=== PATIENT | female | born 1960 | race Caucasian/White ===

== ENCOUNTER 2017-05-29 05:32 | Inpatient (IN) | payer MEDICAID ==
[~2017-05-29] VITALS: Ht 165.1 cm; Wt 97.5 kg
[~2017-05-29 05:32] MED LIST: ENAL10TA PO; GABA-290 PO; NPH,100V SQ; OMEP20TA15 PO; PRED1TAB PO
[2017-05-29 06:49] LABS: BASOPHILS % 0.6 % (0.0-2.0); EOSINOPHILS % 1.1 % (0.0-5.0); HEMOGLOBIN. 11.3 g/dL (12.0-16.0); LYMPHOCYTES % 20.8 % (20.0-50.0); MEAN CORPUSCULAR HEMOGLOBIN 28.8 pg (28.0-32.0); MEAN CORPUSCULAR VOLUME 86.8 fL (81.0-99.0); MEAN PLATELET VOLUME 7.9 fl (7.4-10.4); NEUTROPHILS % 72.5 % (40.0-76.0); PLATELET 365 x1000/uL (130-400); RED BLOOD CELL COUNT 3.92 mill/uL (4.2-5.4); RED CELL DISTRIBUTION WIDTH 14.2 % (11.6-14.6)
[2017-05-29 06:53] LABS: CHLORIDE 105 mEq/L (98-107)
[2017-05-29 06:55] LABS: PROTHROMBIN TIME 10.7 sec (9.4-11.6)
[2017-05-29] MEDS ORDERED: FUROSEMIDE 40MG/4ML VIAL IVP ONE (07:30)
[2017-05-29] MEDS ORDERED: ENALAPRIL 2.5MG/2ML VIAL 2ML IV ONE (07:30)
[2017-05-29] MEDS ORDERED: SODIUM POLYSTYRENE SULFONATE 15 G/60 ML BOT PO SCH (09:00)
[2017-05-29] MEDS ORDERED: MORPHINE SULFATE 2 MG/ML CPJ (NOT FOR IM USE) IV ONE (09:00)
[2017-05-29 09:20] VITALS: BP 150/85
[2017-05-29] MEDS ORDERED: TRAMADOL 50MG TABLET PO PRN (09:45)
[2017-05-29] MEDS ORDERED: ENOXAPARIN 40MG/0.4ML SYR SUBCUT SCH (09:45)
[2017-05-29] MEDS ORDERED: DOCUSATE SODIUM 100MG CAPSULE PO PRN (09:45)
[2017-05-29] MEDS ORDERED: MAGNESIUM/ALUMINUM HYDROXIDE/SIMETHICONE 30ML UDC PO PRN (09:45)
[2017-05-29] MEDS ORDERED: ACETAMINOPHEN 325MG TABLET PO PRN (09:45)
[2017-05-29] MEDS ORDERED: DEXTROSE 50% WATER 50ML SYRINGE IV PRN (09:45)
[2017-05-29] MEDS ORDERED: IPRATROPIUM/ALBUTEROL 0.5-3(2.5)MG/3ML NEB INH PRN (09:45)
[2017-05-29] MEDS ORDERED: CLONIDINE 0.1MG TABLET PO PRN (09:45)
[2017-05-29] MEDS: DIPHENHYDRAMINE 50MG/ML VIAL IV PRN ×3 (12:04→23:43)
[2017-05-29] MEDS: BLOOD SUGAR DIAGNOSTIC STRIP TEST SCH ×3 (12:13→20:59)
[2017-05-29] MEDS: HYDROCODONE/ACETAMINOPHEN 10/325MG TABLET PO PRN (12:17)
[2017-05-29] MEDS: INSULIN LISPRO 100 UNITS/ML SUBCUT SCH ×3 (12:19→21:15)
[2017-05-29 12:27] VITALS: BP 118/61
[2017-05-29] MEDS ORDERED: MEDICATION NOT ON FORMULARY EA (Gabapentin 800 MG) PO SCH (12:30)
[2017-05-29] MEDS: CARVEDILOL 3.125 MG TABLET PO SCH ×2 (13:50→20:22)
[2017-05-29] MEDS: GABAPENTIN 400MG CAPSULE PO SCH ×2 (13:51→20:45)
[2017-05-29] MEDS: LISINOPRIL 10MG TABLET PO SCH ×2 (13:51→20:23)
[2017-05-29] MEDS: OMEPRAZOLE 20MG CAPSULE EXTENDED RELEASE PO SCH ×2 (13:51→20:45)
[2017-05-29] MEDS: PREDNISONE 1MG TABLET PO SCH (13:53)
[2017-05-29] MEDS: SODIUM CHLORIDE 0.9% INJ 3ML FLUSH IVF SCH ×2 (13:54→21:13)
[2017-05-29 16:24] VITALS: BP 125/72
[2017-05-29] MEDS: FUROSEMIDE 40MG/4ML VIAL IVP SCH (16:59)
[2017-05-29] MEDS ORDERED: MEDICATION NOT ON FORMULARY EA (Omeprazole Magnesium (Prilosec Otc) 20 MG) PO SCH (17:00)
[2017-05-29 20:00] VITALS: BP 109/41
[2017-05-29] MEDS: ENOXAPARIN 30MG/0.3ML SYR SUBCUT SCH (21:00)
[2017-05-29] MEDS: METOCLOPRAMIDE HCL 10MG/2ML VIAL IV SCH (23:34)
[2017-05-30] VITALS: BP 103/62
[2017-05-30 04:00] VITALS: BP 101/52
[2017-05-30] MEDS: HYDROCODONE/ACETAMINOPHEN 10/325MG TABLET PO PRN ×2 (04:50→20:52)
[2017-05-30] MEDS: METOCLOPRAMIDE HCL 10MG/2ML VIAL IV SCH ×3 (05:24→22:10)
[2017-05-30] MEDS: SODIUM CHLORIDE 0.9% INJ 3ML FLUSH IVF SCH ×3 (05:24→22:10)
[2017-05-30] MEDS: BLOOD SUGAR DIAGNOSTIC STRIP TEST SCH ×6 (06:15→20:42)
[2017-05-30] MEDS: FUROSEMIDE 40MG/4ML VIAL IVP SCH (06:28)
[2017-05-30] MEDS: DIPHENHYDRAMINE 50MG/ML VIAL IV PRN ×2 (06:28→20:45)
[2017-05-30] MEDS: OMEPRAZOLE 20MG CAPSULE EXTENDED RELEASE PO SCH (06:29)
[2017-05-30] MEDS: INSULIN LISPRO 100 UNITS/ML SUBCUT SCH ×5 (06:30→21:07)
[2017-05-30 07:35] LABS: BASOPHILS % 0.4 % (0.0-2.0); EOSINOPHILS % 1.3 % (0.0-5.0); HEMOGLOBIN. 9.9 g/dL (12.0-16.0); LYMPHOCYTES % 23.1 % (20.0-50.0); MEAN CORPUSCULAR HEMOGLOBIN 28.9 pg (28.0-32.0); MEAN CORPUSCULAR VOLUME 87.1 fL (81.0-99.0); MEAN PLATELET VOLUME 8.4 fl (7.4-10.4); MONOCYTES % 4.9 % (2.0-8.0); NEUTROPHILS % 70.3 % (40.0-76.0); PLATELET 308 x1000/uL (130-400); RED BLOOD CELL COUNT 3.44 mill/uL (4.2-5.4); RED CELL DISTRIBUTION WIDTH 14.2 % (11.6-14.6)
[2017-05-30] MEDS: IPRATROPIUM/ALBUTEROL 0.5-3(2.5)MG/3ML NEB HHN SCH ×4 (08:00→21:08)
[2017-05-30 08:32] VITALS: BP 100/62
[2017-05-30] MEDS: GABAPENTIN 400MG CAPSULE PO SCH ×2 (08:50→20:43)
[2017-05-30] MEDS: PREDNISONE 1MG TABLET PO SCH (08:50)
[2017-05-30] MEDS: ENOXAPARIN 30MG/0.3ML SYR SUBCUT SCH ×2 (08:50→20:44)
[2017-05-30] MEDS: LISINOPRIL 10MG TABLET PO SCH (08:55)
[2017-05-30] MEDS: CARVEDILOL 3.125 MG TABLET PO SCH ×2 (08:55→20:43)
[2017-05-30 11:07] LABS: CLARITY URINE CLOUDY (CLEAR); COLOR URINE YELLOW (YELLOW); KETONES URINE NEGATIVE (NEGATIVE); LEUKOCYTE ESTERASE URINE NEGATIVE (NEGATIVE); NITRITE URINE NEGATIVE (NEGATIVE); OCCULT BLOOD URINE TRACE (NEGATIVE); PH URINE 5.5 (4.5-8.0); PROTEIN URINE 3+ (NEGATIVE); SPECIFIC GRAVITY URINE 1.017 (1.005-1.030); UROBILINOGEN URINE 0.2 E.U./dL (0.2-1.0)
[2017-05-30 11:23] LABS: *AMPHETAMINES SCREEN URINE NEGATIVE (NEGATIVE); *BARBITURATES SCREEN URINE NEGATIVE (NEGATIVE); *BENZODIAZEPINES SCREEN URINE NEGATIVE (NEGATIVE)
[2017-05-30 11:24] LABS: *COCAINE SCREEN URINE NEGATIVE (NEGATIVE); METHADONE URINE SCREEN NEGATIVE (NEGATIVE)
[2017-05-30 11:25] LABS: CANNABINOID URINE SCREEN NEGATIVE (NEGATIVE); OPIATES URINE SCREEN PRESUMTIVE POSITIVE (NEGATIVE); PHENCYCLIDINE URINE SCREEN NEGATIVE (NEGATIVE)
[2017-05-30] MEDS ORDERED: DEXTROSE 50% WATER 50ML SYRINGE IV PRN ×2 (11:30→17:45)
[2017-05-30 12:24] VITALS: BP 90/51
[2017-05-30 16:12] VITALS: BP 104/41
[2017-05-30 20:00] VITALS: BP 150/87
[2017-05-30] MEDS: LISINOPRIL 5MG TABLET PO SCH (20:43)
[2017-05-30] MEDS: FAMOTIDINE 20MG TABLET PO SCH (20:43)
[2017-05-30 21:08] LABS: TOTAL IRON BINDING CAPACITY 212 ug/dL (250-450)
[2017-05-31 00:01] VITALS: BP 110/68
[2017-05-31] MEDS: DIPHENHYDRAMINE 50MG/ML VIAL IV PRN (01:25)
[2017-05-31] MEDS: IPRATROPIUM/ALBUTEROL 0.5-3(2.5)MG/3ML NEB HHN SCH ×5 (01:29→21:01)
[2017-05-31 04:02] VITALS: BP 120/65
[2017-05-31] MEDS: HYDROCODONE/ACETAMINOPHEN 10/325MG TABLET PO PRN ×2 (04:22→16:38)
[2017-05-31] MEDS: BLOOD SUGAR DIAGNOSTIC STRIP TEST SCH ×6 (06:02→21:31)
[2017-05-31 06:15] LABS: BASOPHILS % 0.5 % (0.0-2.0); EOSINOPHILS % 1.3 % (0.0-5.0); HEMATOCRIT. 30.3 % (36.0-48.0); LYMPHOCYTES % 28.2 % (20.0-50.0); MEAN CORPUSCULAR HEMOGLOBIN 28.9 pg (28.0-32.0); MEAN CORPUSCULAR VOLUME 87.6 fL (81.0-99.0); MEAN PLATELET VOLUME 8.6 fl (7.4-10.4); MONOCYTES % 5.7 % (2.0-8.0); NEUTROPHILS % 64.3 % (40.0-76.0); PLATELET 336 x1000/uL (130-400); RED BLOOD CELL COUNT 3.46 mill/uL (4.2-5.4); RED CELL DISTRIBUTION WIDTH 14.2 % (11.6-14.6)
[2017-05-31] MEDS: METOCLOPRAMIDE HCL 10MG/2ML VIAL IV SCH ×3 (06:22→21:39)
[2017-05-31] MEDS: INSULIN LISPRO 100 UNITS/ML SUBCUT SCH ×4 (06:24→21:00)
[2017-05-31] MEDS: SODIUM CHLORIDE 0.9% INJ 3ML FLUSH IVF SCH ×3 (06:31→21:41)
[2017-05-31 08:00] VITALS: BP 93/53
[2017-05-31] MEDS: GABAPENTIN 400MG CAPSULE PO SCH ×2 (08:18→21:39)
[2017-05-31] MEDS: ENOXAPARIN 30MG/0.3ML SYR SUBCUT SCH ×2 (08:18→21:42)
[2017-05-31] MEDS: FAMOTIDINE 20MG TABLET PO SCH ×2 (08:18→21:39)
[2017-05-31] MEDS: PREDNISONE 1MG TABLET PO SCH (08:18)
[2017-05-31] MEDS: LISINOPRIL 5MG TABLET PO SCH ×2 (08:19→21:40)
[2017-05-31] MEDS: CARVEDILOL 3.125 MG TABLET PO SCH ×2 (08:19→21:40)
[2017-05-31 12:00] VITALS: BP 100/56
[2017-05-31 16:00] VITALS: BP_SYST 91; BP_SYST 98; BP_DIAS 50; BP_DIAS 56
[2017-05-31 20:00] VITALS: BP 142/79
[2017-06-01] VITALS (8 sets, daily range): BP systolic 101–127; BP diastolic 50–75
[2017-06-01] MEDS: DIPHENHYDRAMINE 50MG/ML VIAL IV PRN ×3 (00:46→13:59)
[2017-06-01] MEDS: IPRATROPIUM/ALBUTEROL 0.5-3(2.5)MG/3ML NEB HHN SCH ×5 (00:49→16:00)
[2017-06-01] MEDS: HYDROCODONE/ACETAMINOPHEN 10/325MG TABLET PO PRN ×2 (02:28→12:15)
[2017-06-01] MEDS: METOCLOPRAMIDE HCL 10MG/2ML VIAL IV SCH ×2 (05:55→14:00)
[2017-06-01] MEDS: SODIUM CHLORIDE 0.9% INJ 3ML FLUSH IVF SCH ×2 (05:55→14:00)
[2017-06-01] MEDS: INSULIN LISPRO 100 UNITS/ML SUBCUT SCH ×3 (06:37→16:55)
[2017-06-01] MEDS: BLOOD SUGAR DIAGNOSTIC STRIP TEST SCH ×3 (06:38→16:50)
[2017-06-01] MEDS: PREDNISONE 1MG TABLET PO SCH (08:44)
[2017-06-01] MEDS: CARVEDILOL 3.125 MG TABLET PO SCH (08:44)
[2017-06-01] MEDS: ENOXAPARIN 30MG/0.3ML SYR SUBCUT SCH (08:44)
[2017-06-01] MEDS: FAMOTIDINE 20MG TABLET PO SCH (08:45)
[2017-06-01] MEDS: GABAPENTIN 400MG CAPSULE PO SCH (08:45)
[2017-06-01] MEDS: LISINOPRIL 5MG TABLET PO SCH (08:45)
[2017-06-01 09:51] LABS: HEMATOCRIT 30.8 % (36.0-48.0); HEMOGLOBIN 10.1 g/dL (12.0-16.0); MEAN CORPUSCULAR HEMOGLOBIN 28.8 pg (28.0-32.0); MEAN CORPUSCULAR VOLUME 87.9 fL (81.0-99.0); PLATELET 347 x1000/uL (130-400); RED BLOOD CELL COUNT 3.51 mill/uL (4.2-5.4); RED CELL DISTRIBUTION WIDTH 13.9 % (11.6-14.6)
[2017-06-01 10:26] LABS: CHLORIDE 103 mEq/L (98-107)
[2017-06-01] MEDS ORDERED: COR3 PO (12:15)
[2017-06-01] MEDS ORDERED: FAMO20TA8 PO (12:16)
[2017-06-01] MEDS ORDERED: DOCU-138 PO (12:16)
[2017-06-01] MEDS ORDERED: LISI-186 PO (12:16)
[2017-06-01] MEDS ORDERED: INSLIS SUBCUT (12:22)
== END 2017-06-01 17:00 | disposition home or self-care (01) | DRG 194 ==
LOC: ER 05:32 → 8WST 07:40 → EDBEDREQ 07:50 → ENRESERV 07:56
PROVIDERS: ADMIT Internal Medicine; ATTEND Internal Medicine
DX: I11.0 Hypertensive heart disease with heart failure (principal); J96.90 Respiratory failure, unspecified, unspecified whether with hypoxia or hypercapnia; E43 Unspecified severe protein-calorie malnutrition; E11.65 Type 2 diabetes mellitus with hyperglycemia; E87.5 Hyperkalemia; M60.9 Myositis, unspecified; E66.01 Morbid (severe) obesity due to excess calories; D50.9 Iron deficiency anemia, unspecified; M19.90 Unspecified osteoarthritis, unspecified site; I50.43 Acute on chronic combined systolic (congestive) and diastolic (congestive) heart failure; E78.00 Pure hypercholesterolemia, unspecified; Z79.4 Long term (current) use of insulin; Z82.49 Family history of ischemic heart disease and other diseases of the circulatory system; Z83.3 Family history of diabetes mellitus; Z68.35 Body mass index [BMI] 35.0-35.9, adult; Z88.5 Allergy status to narcotic agent; Z88.0 Allergy status to penicillin; Z88.8 Allergy status to other drugs, medicaments and biological substances; Z79.899 Other long term (current) drug therapy; Z56.0 Unemployment, unspecified
CPT/HCPCS: 36415; 71045; 80048; 80053; 80305; 81003; 82607; 82746; 82962; 83036; 83540; 83550; 83735; 83880; 84484; 85025; 85027; 85044; 85379; 85610; 93005; 93306; 93970; 94640; 96374; 96375; 97116; 97162; 97530; 99285; J1200; J1650; J1815; J1940; J2765; J3490; J7512; J7620

== ENCOUNTER 2017-10-20 15:45 | Emergency (ER) | payer MEDICAID ==
[~2017-10-20] VITALS: Ht 165.1 cm; Wt 90.0 kg
[~2017-10-20 15:45] MED LIST changes: +COR3 PO; +DOCU-138 PO; -ENAL10TA PO; +FAMO20TA8 PO; +INSLIS SUBCUT; +LISI-186 PO; -NPH,100V SQ
[2017-10-20 18:52] LABS: BASOPHILS % 1.1 % (0.0-2.0); EOSINOPHILS % 1.5 % (0.0-5.0); HEMATOCRIT. 35.3 % (36.0-48.0); HEMOGLOBIN. 11.4 g/dL (12.0-16.0); MEAN CORPUSCULAR HEMOGLOBIN 27.9 pg (28.0-32.0); MEAN CORPUSCULAR VOLUME 86.4 fL (81.0-99.0); MEAN PLATELET VOLUME 8.3 fl (7.4-10.4); MONOCYTES % 4.6 % (2.0-8.0); NEUTROPHILS % 77.8 % (40.0-76.0); PLATELET 389 x1000/uL (130-400); RED BLOOD CELL COUNT 4.09 mill/uL (4.2-5.4); RED CELL DISTRIBUTION WIDTH 14.9 % (11.6-14.6)
[2017-10-20 19:00] LABS: CHLORIDE 111 mEq/L (98-107)
[2017-10-20] MEDS ORDERED: ACETAMINOPHEN 325MG TABLET PO ONE (19:30)
[2017-10-20] MEDS ORDERED: SODIUM CHLORIDE 0.9% 500 ML IV ONE (19:30)
[2017-10-20 19:35] VITALS: BP 172/85
== END 2017-10-20 19:58 | disposition home or self-care (01) ==
LOC: ER 15:45
DX: G89.29 Other chronic pain (principal); M71.22 Synovial cyst of popliteal space [Baker], left knee; M79.1 Myalgia; E11.9 Type 2 diabetes mellitus without complications; E78.00 Pure hypercholesterolemia, unspecified; I10 Essential (primary) hypertension; Z90.49 Acquired absence of other specified parts of digestive tract; Z79.4 Long term (current) use of insulin; Z79.899 Other long term (current) drug therapy; Z88.0 Allergy status to penicillin; Z88.8 Allergy status to other drugs, medicaments and biological substances; Z88.5 Allergy status to narcotic agent
CPT/HCPCS: 36415; 71045; 80053; 83880; 84484; 85025; 93005; 93970; 99285; J7030; J7040; Z7610